=== PATIENT | female | born 1995 | race Caucasian/White ===

== ENCOUNTER 2017-08-27 17:57 | Emergency (ER) | payer BC, OTHER ==
[2017-08-27 18:13] VITALS: BP 121/74; PULSE 78; RESP 20; TEMP 98.6; O2SAT 99
[2017-08-27] MEDS ORDERED: Amoxicillin-Clav 875-125 mg Tab PO STA (18:19)
[2017-08-27] MEDS ORDERED: Acetaminophen-Codeine 300/30 mg Tab PO ONE (19:05)
--- NOTE | 2017-08-27 19:33 | ED PDOC ---
HPI: Dental Pain/Injury Time Seen by Provider: 08/27/17 18:14 Chief Complaint (Nursing): Dental Pain Chief Complaint (Provider): Dental pain History Per: Patient History/Exam Limitations: no limitations Onset/Duration Of Symptoms: Days (x3) Additional Complaint(s): Patient is a 22 y/o female who presents to the ED for evaluation of left lower toothache, onset x3 days ago(Monday08/25/17). She describes the pain as sharp, shooting and radiating into her jaw. Patient states that one of her molars has been cracked for a while but it didn't start bothering until Monday. She has been using Tylenol to manage symptoms, last at since 15:00 today with minimal relief. She has no additional complaints and confirms that she is planning to see her dentist tomorrow. LMP: August 14 2017 PMD: None provided Past Medical History Reviewed: Historical Data, Nursing Documentation, Vital Signs Vital Signs: Last Vital Signs Temp 98.6 F 08/27/17 18:10 Pulse 78 08/27/17 18:10 Resp 20 08/27/17 18:10 BP 121/74 08/27/17 18:10 Pulse Ox 99 08/27/17 18:10 - Medical History PMH: No Chronic Diseases - Surgical History Surgical History: No Surg Hx - Family History Family History: States: Unknown Family Hx - Social History Current smoker - smoking cessation education provided: No Alcohol: None Drugs: Denies - Home Medications Home Medications: Ambulatory Orders Medication Instructions Recorded Ondansetron [Zofran Odt] 4 mg PO Q8H PRN #15 odt 03/28/16 Acetaminophen [Acetaminophen 8 650 mg PO Q8 #21 tablet.er 08/27/17 Hour] Amoxicillin/Clavulanate [Augmentin 1 tab PO BID #14 tab 08/27/17 875 MG-125 MG] Ibuprofen [Motrin Tab] 600 mg PO Q6 #24 tab 08/27/17 - Allergies Allergies/Adverse Reactions: Allergies Allergy/AdvReac Type Severity Reaction Status Date / Time No Known Allergies Allergy Verified 03/28/16 07:27 Review of Systems ROS Statement: Except As Marked, All Systems Reviewed And Found Negative Constitutional: Negative for: Fever ENT: Positive for: Mouth Pain (tooth pain, radiating into jaw) Physical Exam - Reviewed Nursing Documentation Reviewed: Yes Vital Signs Reviewed: Yes - Physical Exam Comments: GENERAL APPEARANCE: Patient is awake, alert, oriented x 3. Resting comfortably, no distress noted. SKIN: Warm, dry; (-) cyanosis. EYES: (-) conjunctival pallor, (-) scleral icterus. ENMT: Left lower first molar cracked. (+) pulp exposure (+) tenderness to palpation; (+) multiple dental caries, Remainder of dentition intact and nontender. Pharynx clear; uvula midline. (-)erythema, (-) exudate. Tympanic membranes: nonbulging, nonerythematous bilaterally. Mucus membranes moist. Airway patent, (-) stridor. NECK: Supple, FROM (-) tenderness, (-) stiffness, (-) lymphadenopathy. CHEST AND RESPIRATORY: (-) rales, (-) rhonchi, (-) wheezes; breath sounds equal bilaterally. Speaking in full sentences, respirations even and nonlabored. HEART AND CARDIOVASCULAR: (-) irregularity; (-) murmur, (-) gallop. NEURO AND PSYCH: Mental status as above; (-) focal findings. Gait steady, speech clear. (-) facial asymmetry. - Laboratory Results Urine POC: Negative - ECG O2 Sat by Pulse Oximetry: 99 (RA) Pulse Ox Interpretation: Normal Medical Decision Making Medical Decision Making: Time: 18:20 Initial Impression: Toothache, cracked tooth, possible dental infection Initial Plan: -- test urine --Augmentin 875 MG-125 MG PO --Toradol 30 mg IM --Tramadol 50mg PO (Patient states she is not driving) --Reevaluation Time: 19:00 Patient states that symptoms are much improved. Upon provider evaluation patient is medically stable, and requires no further treatment in the ED at this time. Patient will be discharged home with Rx for 650 mg pO Q8 Acetaminophen, Aumentin 875 MG -125 MG 1 tab PO BID, Motrin 600 mg PO q6. Counseling was provided and all questions were answered regarding diagnosis and need for follow up with dentist. There is agreement to discharge plan. Return if symptoms persist or worsen. Vitals table. Patient states she fully agrees with and understands discharge instructions. States that she agrees with the plan and disposition. Verbalized and repeated discharge instructions and plan. I have given the patient opportunity to ask any additional questions. Scribe Attestation: Documented by David Castaneda, acting as a scribe for [place] PA-C Provider Scribe Attestation: All medical record entries made by the Scribe were at my direction and personally dictated by me. I have reviewed the chart and agree that the record accurately reflects my personal performance of the history, physical exam, medical decision making, and the department course for this patient. I have also personally directed, reviewed, and agree with the discharge instructions and disposition. Disposition - Clinical Impression Clinical Impression: Pain, dental, Cracked tooth, Dental infection - Patient ED Disposition Is Patient to be Admitted: No Counseled Patient/Family Regarding: Diagnosis, Need For Followup, Rx Given - Disposition Referrals: [facility] [Outside] Disposition: Routine/Home Disposition Time: 19:01 Condition: STABLE Additional Instructions: FOLLOW UP WITH CLINIC/DENTAL IN 1-2 DAYS WITHOUT FAIL. RETURN TO ED WITH ANY NEW OR WORSENING SYMPTOMS. Prescriptions: Acetaminophen [Acetaminophen 8 Hour] 650 mg PO Q8 #21 tablet.er Amoxicillin/Clavulanate [Augmentin 875 MG-125 MG] 1 tab PO BID #14 tab Ibuprofen [Motrin Tab] 600 mg PO Q6 #24 tab Instructions: Fractured Tooth, Dental Pain Forms: [employer] (Algerian) Print Language: HUNGARIAN - POA Present On Arrival: None
== END 2017-08-27 19:14 | disposition home or self-care (01) ==
LOC: H.ER 17:57
DX: K03.81 Cracked tooth (principal); K04.7 Periapical abscess without sinus
CPT/HCPCS: 81025; 96372; 99282; J1885